=== PATIENT | male | born 1975 | race Caucasian/White ===

== ENCOUNTER 2017-07-22 05:51 | Emergency (ER) | payer OTHER ==
[2017-07-22] MEDS: ACETAMINOPHEN 500 MG TAB PO (08:56)
== END 2017-07-22 09:00 | disposition home or self-care (01) ==
LOC: FTE 05:51
DX: J18.9 Pneumonia, unspecified organism (principal); Z87.891 Personal history of nicotine dependence
CPT/HCPCS: 71010; 71045; 99284-25

== ENCOUNTER 2017-08-26 18:45 | Inpatient (IN) | payer OTHER ==
[2017-08-26 23:38] LABS: ADD MAN DIFF? NO
[2017-08-26 23:45] LABS: BASOPHILS % 0.2 % (0.0-2.0); EOSINOPHILS % 0.3 % (0.0-7.0); HEMATOCRIT 38.9 % (42.0-52.0); HEMOGLOBIN 12.9 g/dl (14.0-18.0); LYMPHOCYTES # 2.2 10^3/ul (0.8-2.9); LYMPHOCYTES % 24.4 % (15.0-51.0); MEAN CORPUSCULAR HEMOGLOBIN 28.8 pg (29.0-33.0); MEAN CORPUSCULAR HGB CONC 33.2 g/dl (32.0-37.0); MEAN CORPUSCULAR VOLUME 86.8 fl (82.0-101.0); MEAN PLATELET VOLUME 8.8 fl (7.4-10.4); MONOCYTE # 0.9 10^3/ul (0.3-0.9); MONOCYTES % 9.4 % (0.0-11.0); NEUTROPHIL # 5.9 10^3/ul (1.6-7.5); NEUTROPHILS % 65.4 % (39.0-77.0); PLATELET COUNT 300 10^3/UL (140-415); RED BLOOD COUNT 4.48 10^6/ul (4.70-6.10); RED CELL DISTRIBUTION WIDTH 11.7 % (11.5-14.5)
[2017-08-27 00:06] LABS: ALANINE AMINOTRANSFERASE 231 IU/L (13-69); ALBUMIN 4.2 g/dl (3.3-4.9); ALKALINE PHOSPHATASE 153 IU/L (42-121); ANION GAP 16 (8-16); ASPARTATE AMINO TRANSFERASE 248 IU/L (15-46); BILIRUBIN,INDIRECT 0.6 mg/dl (0-1.1); BILIRUBIN,TOTAL 0.7 mg/dl (0.2-1.3); BLOOD UREA NITROGEN 15 mg/dl (7-20); CALCIUM 9.4 mg/dl (8.4-10.2); CARBON DIOXIDE 29 mmol/L (21-31); CHLORIDE 105 mmol/L (97-110); CREATININE 0.86 mg/dl (0.61-1.24); GLUCOSE 87 mg/dl (70-220); SODIUM 146 mmol/L (135-144); TOTAL PROTEIN 7.2 g/dl (6.1-8.1)
[2017-08-27] MEDS: morphine 4 MG/ML VIAL IV (00:11)
[2017-08-27] MEDS: ONDANSETRON 4 MG INJ IV (00:11)
[2017-08-27 00:16] LABS: B-TYPE NATRIURETIC PEPTIDE 51 PG/ML (0-125)
[2017-08-27 00:38] LABS: TROPONIN-I < 0.012 ng/ml (0.00-0.12)
[2017-08-27] MEDS ORDERED: NITROGLYCERIN (SL) 0.4 MG TAB SL (02:30)
[2017-08-27] MEDS ORDERED: BISACODYL (EC) 5 MG TAB PO (02:30)
[2017-08-27] MEDS ORDERED: NACL 0.9% 3 ML SYG IV (02:30)
[2017-08-27] MEDS ORDERED: DOCUSATE SODIUM 100 MG CAP PO (02:30)
[2017-08-27] MEDS ORDERED: morphine 2 MG INJ IV (02:30)
[2017-08-27] MEDS ORDERED: ONDANSETRON 4 MG INJ IV (02:30)
[2017-08-27] MEDS: SOD CHLORIDE 0.9% 1,000 ML IV ×2 (04:31→14:58)
[2017-08-27] MEDS: ALBUTEROL HFA 8 GM INHALER INH ×4 (04:34→14:58)
[2017-08-27 07:17] LABS: ADD UMIC NO; UR ASCORBIC ACID 40 mg/dL (NEGATIVE); UR BILIRUBIN (Dip) NEGATIVE (NEGATIVE); UR BLOOD (Dip) NEGATIVE (NEGATIVE); UR CLARITY CLEAR (CLEAR); UR COLOR AMBER (YELLOW); UR GLUCOSE (Dip) NEGATIVE (NEGATIVE); UR KETONES (Dip) TRACE mg/dL (NEGATIVE); UR LEUKOCYTE ESTERASE (Dip) NEGATIVE Leu/ul (NEGATIVE); UR NITRITE (Dip) NEGATIVE (NEGATIVE); UR SPECIFIC GRAVITY (Dip) 1.019 (1.003-1.030); UR TOTAL PROTEIN (Dip) NEGATIVE (NEGATIVE); UR UROBILINOGEN (Dip) 2+ mg/dL (NEGATIVE)
[2017-08-27 08:41] LABS: D-DIMER 551.02 ng/ml (<460)
[2017-08-27] MEDS: RANITIDINE 150 MG TAB PO (09:00)
[2017-08-27 11:45] LABS: CHOL/HDL RATIO 3.8 RATIO; CREATINE KINASE 75 IU/L (23-200); HDL CHOLESTEROL 40 mg/dl (27-67); LDL CHOLESTEROL,CALCULATED 94 mg/dl; TRIGLYCERIDES 101 mg/dl (0-149)
[2017-08-27 11:45] LABS: CHOLESTEROL 154 mg/dl (100-200)
[2017-08-27 11:57] LABS: CK INDEX 0.6
[2017-08-27 12:04] LABS: CK-MB 0.46 ng/ml (0.0-2.4); TROPONIN-I < 0.012 ng/ml (0.00-0.12)
[2017-08-27 12:08] LABS: HEMOGLOBIN A1C 5.2 % (0-5.9)
[2017-08-27] MEDS: IODIXANOL LOCM 100 ML BTL (13:09)
[2017-08-27] MEDS: SOD CHLORIDE 0.9% 100 ML (13:39)
[2017-08-27] MEDS: IOHEXOL 100 ML (13:39)
[2017-08-27 15:17] LABS: ALANINE AMINOTRANSFERASE 403 IU/L (13-69); ALBUMIN 4.2 g/dl (3.3-4.9); ALKALINE PHOSPHATASE 183 IU/L (42-121); ANION GAP 14 (8-16); ASPARTATE AMINO TRANSFERASE 308 IU/L (15-46); BILIRUBIN,INDIRECT 0.7 mg/dl (0-1.1); BILIRUBIN,TOTAL 1.1 mg/dl (0.2-1.3); BLOOD UREA NITROGEN 11 mg/dl (7-20); CALCIUM 9.1 mg/dl (8.4-10.2); CARBON DIOXIDE 28 mmol/L (21-31); CHLORIDE 105 mmol/L (97-110); CREATININE 0.89 mg/dl (0.61-1.24); GLUCOSE 102 mg/dl (70-220); POTASSIUM 4.3 mmol/L (3.5-5.1); SODIUM 143 mmol/L (135-144)
== END 2017-08-27 16:16 | disposition home or self-care (01) | DRG 313 ==
LOC: E/R 18:45 → TEL 08-27 01:08
DX: R07.9 Chest pain, unspecified (principal); R10.13 Epigastric pain
CPT/HCPCS: 36415; 71045; 71275; 76705; 80053; 80061; 81003; 82550; 82553; 83036; 83880; 84443; 84484; 85025; 85378; 93005; 93306; 96374; 96375; 99285-25

== ENCOUNTER 2017-09-09 04:09 | Inpatient (IN) | payer OTHER ==
[2017-09-09 04:48] LABS: ADD MAN DIFF? NO
[2017-09-09 04:50] LABS: WHITE BLOOD COUNT 11.6 10^3/ul (4.8-10.8)
[2017-09-09 04:50] LABS: BASOPHILS % 0.3 % (0.0-2.0); EOSINOPHILS % 0.2 % (0.0-7.0); HEMATOCRIT 39.9 % (42.0-52.0); HEMOGLOBIN 13.7 g/dl (14.0-18.0); LYMPHOCYTES # 1.6 10^3/ul (0.8-2.9); LYMPHOCYTES % 13.6 % (15.0-51.0); MEAN CORPUSCULAR HEMOGLOBIN 28.9 pg (29.0-33.0); MEAN CORPUSCULAR HGB CONC 34.3 g/dl (32.0-37.0); MEAN CORPUSCULAR VOLUME 84.2 fl (82.0-101.0); MEAN PLATELET VOLUME 8.9 fl (7.4-10.4); MONOCYTE # 1.1 10^3/ul (0.3-0.9); MONOCYTES % 9.1 % (0.0-11.0); NEUTROPHIL # 8.9 10^3/ul (1.6-7.5); NEUTROPHILS % 76.5 % (39.0-77.0); PLATELET COUNT 340 10^3/UL (140-415); RED BLOOD COUNT 4.74 10^6/ul (4.70-6.10)
[2017-09-09] MEDS: SOD CHLORIDE 0.9% 1,000 ML IV ×2 (04:54→06:14)
[2017-09-09] MEDS: LIDOCAINE/MYLANTA 40 ML BTL PO (04:55)
[2017-09-09] MEDS: ONDANSETRON 4 MG INJ IV (04:56)
[2017-09-09 05:10] LABS: ALANINE AMINOTRANSFERASE 664 IU/L (13-69); ALBUMIN 4.4 g/dl (3.3-4.9); ALBUMIN/GLOBULIN RATIO 1.33; ALKALINE PHOSPHATASE 332 IU/L (42-121); ANION GAP 18 (8-16); ASPARTATE AMINO TRANSFERASE 382 IU/L (15-46); BILIRUBIN,INDIRECT 1.2 mg/dl (0-1.1); BILIRUBIN,TOTAL 3.2 mg/dl (0.2-1.3); BLOOD UREA NITROGEN 11 mg/dl (7-20); CALCIUM 9.5 mg/dl (8.4-10.2); CARBON DIOXIDE 27 mmol/L (21-31); CHLORIDE 105 mmol/L (97-110); CREATININE 0.86 mg/dl (0.61-1.24); GLUCOSE 91 mg/dl (70-220); POTASSIUM 3.5 mmol/L (3.5-5.1); SODIUM 146 mmol/L (135-144); TOTAL PROTEIN 7.7 g/dl (6.1-8.1)
[2017-09-09 05:27] LABS: TROPONIN-I < 0.012 ng/ml (0.00-0.12)
[2017-09-09 05:50] LABS: LIPASE 39475 U/L (23-300)
[2017-09-09] MEDS: morphine 4 MG/ML VIAL IV (06:13)
[2017-09-09] MEDS: CEFTRIAXONE 1 GM/50 ML (PMX) 50 ML IVPB (06:36)
[2017-09-09] MEDS ORDERED: NACL 0.9% 3 ML SYG IV (07:00)
[2017-09-09] MEDS ORDERED: ALBUTEROL HFA 8 GM INHALER INH (07:00)
[2017-09-09] MEDS ORDERED: morphine 2 MG INJ IV (07:00)
[2017-09-09] MEDS: metroNIDAZOLE 500 MG/NS (PMX) 100 ML IVPB (07:02)
[2017-09-09 07:44] LABS: INR 0.91; PROTIME 12.3 Sec (11.9-14.9)
[2017-09-09 07:45] LABS: PARTIAL THROMBOPLASTIN TIME 28.6 Sec (25.0-35.0)
[2017-09-09] MEDS: DEXTROSE 5%-0.45% NACL 1,000 ML IV ×3 (08:18→20:16)
[2017-09-09] MEDS: FAMOTIDINE 20 MG INJ IV ×2 (09:21→20:16)
[2017-09-09] MEDS: PIPER-TAZO 3.375 GM IV (PMX) 100 ML IVPB ×2 (17:49→22:04)
[2017-09-10] MEDS: DEXTROSE 5%-0.45% NACL 1,000 ML IV ×5 (02:59→22:59)
[2017-09-10] MEDS: PIPER-TAZO 3.375 GM IV (PMX) 100 ML IVPB ×2 (05:42→13:22)
[2017-09-10 06:13] LABS: ADD MAN DIFF? NO
[2017-09-10 06:21] LABS: BASOPHILS % 0.5 % (0.0-2.0); EOSINOPHILS # 0.1 10^3/ul (0.0-0.5); EOSINOPHILS % 1.2 % (0.0-7.0); HEMATOCRIT 37.4 % (42.0-52.0); HEMOGLOBIN 12.6 g/dl (14.0-18.0); LYMPHOCYTES # 1.9 10^3/ul (0.8-2.9); LYMPHOCYTES % 24.6 % (15.0-51.0); MEAN CORPUSCULAR HEMOGLOBIN 29.1 pg (29.0-33.0); MEAN CORPUSCULAR HGB CONC 33.7 g/dl (32.0-37.0); MEAN CORPUSCULAR VOLUME 86.4 fl (82.0-101.0); MEAN PLATELET VOLUME 8.8 fl (7.4-10.4); MONOCYTE # 0.7 10^3/ul (0.3-0.9); MONOCYTES % 9.3 % (0.0-11.0); NEUTROPHILS % 64.1 % (39.0-77.0); PLATELET COUNT 281 10^3/UL (140-415); RED BLOOD COUNT 4.33 10^6/ul (4.70-6.10)
[2017-09-10 06:21] LABS: WHITE BLOOD COUNT 7.7 10^3/ul (4.8-10.8)
[2017-09-10 06:41] LABS: ALANINE AMINOTRANSFERASE 436 IU/L (13-69); ALBUMIN/GLOBULIN RATIO 1.48; ALKALINE PHOSPHATASE 258 IU/L (42-121); ANION GAP 16 (8-16); ASPARTATE AMINO TRANSFERASE 130 IU/L (15-46); BILIRUBIN,INDIRECT 0.5 mg/dl (0-1.1); BILIRUBIN,TOTAL 0.5 mg/dl (0.2-1.3); BLOOD UREA NITROGEN 10 mg/dl (7-20); CALCIUM 9.2 mg/dl (8.4-10.2); CARBON DIOXIDE 28 mmol/L (21-31); CHLORIDE 105 mmol/L (97-110); CREATININE 0.85 mg/dl (0.61-1.24); GLUCOSE 101 mg/dl (70-220); PHOSPHORUS 3.7 mg/dl (2.5-4.9); POTASSIUM 3.6 mmol/L (3.5-5.1); SODIUM 145 mmol/L (135-144); TOTAL PROTEIN 6.7 g/dl (6.1-8.1)
[2017-09-10 06:41] LABS: LACTIC ACID 1.2 mmol/L (0.5-2.0)
[2017-09-10 06:42] LABS: INR 1.04; PROTIME 13.7 Sec (11.9-14.9); PT RATIO 1.1
[2017-09-10 06:43] LABS: PARTIAL THROMBOPLASTIN TIME 31.5 Sec (25.0-35.0)
[2017-09-10 06:56] LABS: LIPASE 2317 U/L (23-300)
[2017-09-10 07:06] LABS: AMYLASE 811 U/L (11-123)
[2017-09-10] MEDS: FAMOTIDINE 20 MG INJ IV ×2 (08:38→21:04)
[2017-09-11] MEDS: DEXTROSE 5%-0.45% NACL 1,000 ML IV ×4 (05:19→18:59)
[2017-09-11 06:02] LABS: HAAIG REFLEX REFLEX FILED
[2017-09-11 06:38] LABS: ALANINE AMINOTRANSFERASE 339 IU/L (13-69); ALBUMIN 3.8 g/dl (3.3-4.9); ALKALINE PHOSPHATASE 235 IU/L (42-121); ASPARTATE AMINO TRANSFERASE 85 IU/L (15-46); BILIRUBIN,INDIRECT 0.4 mg/dl (0-1.1); BILIRUBIN,TOTAL 0.4 mg/dl (0.2-1.3); LIPASE 562 U/L (23-300); TOTAL PROTEIN 6.9 g/dl (6.1-8.1)
[2017-09-11 07:07] LABS: HEPATITIS B SURFACE ANTIGEN NEGATIVE (NEGATIVE)
[2017-09-11 07:25] LABS: HEPATITIS B CORE ANTIBODY REACTIVE (NEGATIVE); HEPATITIS C VIRAL ANTIBODY NEGATIVE (NEGATIVE)
[2017-09-11] MEDS: FAMOTIDINE 20 MG INJ IV ×2 (08:27→21:40)
[2017-09-12] MEDS: DEXTROSE 5%-0.45% NACL 1,000 ML IV ×2 (04:09→04:59)
[2017-09-12 06:23] LABS: ALANINE AMINOTRANSFERASE 313 IU/L (13-69); ALKALINE PHOSPHATASE 206 IU/L (42-121); ASPARTATE AMINO TRANSFERASE 88 IU/L (15-46); BILIRUBIN,INDIRECT 0.2 mg/dl (0-1.1); BILIRUBIN,TOTAL 0.2 mg/dl (0.2-1.3); TOTAL PROTEIN 6.9 g/dl (6.1-8.1)
[2017-09-12] MEDS ORDERED: MIDAZOLAM 1 MG/ML 2 ML INJ IV (06:30)
[2017-09-12] MEDS ORDERED: hydrALAzine 20 MG INJ IV (06:30)
[2017-09-12] MEDS ORDERED: LABETALOL HCL 20MG INJ IV (06:30)
[2017-09-12] MEDS ORDERED: DIPHENHYDRAMINE 50 MG INJ IV (06:30)
[2017-09-12] MEDS ORDERED: ATROPINE 1 MG/10 ML SYRINGE IV (06:30)
[2017-09-12] MEDS ORDERED: EPHEDrine SULFATE 50 MG/5 ML SYG IV (06:30)
[2017-09-12] MEDS ORDERED: morphine (1 MG/ML) 10ML SYRINGE IV ×3 (06:30)
[2017-09-12] MEDS ORDERED: HYDROmorphONE (0.2 MG/ML) 10ML SYG IV (06:30)
[2017-09-12] MEDS ORDERED: FENTAnyl 50 MCG/ML VIAL IV ×2 (06:30)
[2017-09-12] MEDS ORDERED: OXYCODONE/ACETAMINOPHEN (5/325) TAB PO ×2 (06:30)
[2017-09-12 07:32] LABS: LIPASE 360 U/L (23-300)
[2017-09-12] MEDS: FAMOTIDINE 20 MG INJ IV (08:41)
[2017-09-12] MEDS ORDERED: ROCURONIUM 50 MG INJ (09:59)
[2017-09-12] MEDS ORDERED: PROPOFOL 20 ML (09:59)
[2017-09-12] MEDS ORDERED: GLYCOPYRROLATE 0.4 MG INJ (09:59)
[2017-09-12] MEDS ORDERED: NEOSTIGMINE 3 MG/3 ML SYRINGE (09:59)
[2017-09-12] MEDS ORDERED: FENTAnyl 50 MCG/ML VIAL (10:00)
[2017-09-12] MEDS ORDERED: MIDAZOLAM 1 MG/ML 2 ML INJ (10:01)
[2017-09-12] MEDS ORDERED: ONDANSETRON 4 MG INJ (10:01)
[2017-09-12] MEDS ORDERED: DEXAMETHASONE 4 MG/ML 1 ML INJ (10:01)
[2017-09-12] MEDS ORDERED: ALBUTEROL 0.083% (NEB) 2.5 MG/3 ML AMP ×3 (11:29→12:02)
[2017-09-12] MEDS ORDERED: LABETALOL HCL 20MG INJ (11:52)
[2017-09-12] MEDS ORDERED: SUGAMMADEX SODIUM 200 MG/2 ML VIAL IV (12:02)
[2017-09-12] MEDS: BUPIVACAINE 0.25% (MPF) 30 ML INJ (12:54)
[2017-09-12] MEDS: HYDROmorphONE (0.2 MG/ML) 10ML SYG IV ×4 (13:09→14:12)
[2017-09-12] MEDS: MEPERIDINE 25 MG INJ IV (13:22)
[2017-09-12] MEDS ORDERED: HYDROmorphONE 0.5 MG/0.5 ML SYG IV (13:30)
[2017-09-12] MEDS ORDERED: HYDROCODONE/APAP (5/325) TAB PO (13:30)
[2017-09-12] MEDS ORDERED: HYDROmorphONE 1 MG/ML SYG IV (13:30)
[2017-09-12] MEDS ORDERED: NA PHOSPHATE/BIPHOS 133 ML ENEMA PR (13:30)
[2017-09-12] MEDS ORDERED: BISACODYL 10 MG SUPP PR (13:30)
[2017-09-12] MEDS: ONDANSETRON 4 MG INJ IV ×2 (13:37→20:18)
[2017-09-12] MEDS: BISACODYL 10 MG SUPP PR (20:17)
[2017-09-12] MEDS: HYDROCODONE/APAP (5/325) TAB PO (20:19)
[2017-09-12] MEDS: HYDROmorphONE 0.5 MG/0.5 ML SYG IV (20:19)
[2017-09-12] MEDS: FAMOTIDINE 20 MG TAB PO (20:19)
[2017-09-12] MEDS: DOCUSATE SODIUM 100 MG CAP PO (20:20)
[2017-09-13] MEDS: HYDROCODONE/APAP (5/325) TAB PO ×3 (01:08→11:46)
[2017-09-13 06:07] LABS: ADD MAN DIFF? NO
[2017-09-13 06:10] LABS: BASOPHILS % 0.2 % (0.0-2.0); EOSINOPHILS % 0.2 % (0.0-7.0); HEMATOCRIT 40.8 % (42.0-52.0); LYMPHOCYTES % 24.8 % (15.0-51.0); MEAN CORPUSCULAR HEMOGLOBIN 29.1 pg (29.0-33.0); MEAN CORPUSCULAR HGB CONC 34.3 g/dl (32.0-37.0); MEAN CORPUSCULAR VOLUME 84.8 fl (82.0-101.0); MEAN PLATELET VOLUME 8.6 fl (7.4-10.4); MONOCYTES % 8.2 % (0.0-11.0); NEUTROPHILS % 66.2 % (39.0-77.0); PLATELET COUNT 457 10^3/UL (140-415); RED BLOOD COUNT 4.81 10^6/ul (4.70-6.10)
[2017-09-13 06:10] LABS: WHITE BLOOD COUNT 12.1 10^3/ul (4.8-10.8)
[2017-09-13 06:31] LABS: INR 0.96; PROTIME 12.9 Sec (11.9-14.9)
[2017-09-13 06:32] LABS: PARTIAL THROMBOPLASTIN TIME 28.4 Sec (25.0-35.0)
[2017-09-13 07:09] LABS: ALANINE AMINOTRANSFERASE 316 IU/L (13-69); ALBUMIN 4.9 g/dl (3.3-4.9); ALBUMIN/GLOBULIN RATIO 1.48; ALKALINE PHOSPHATASE 235 IU/L (42-121); ANION GAP 21 (8-16); ASPARTATE AMINO TRANSFERASE 98 IU/L (15-46); BILIRUBIN,INDIRECT 0.4 mg/dl (0-1.1); BILIRUBIN,TOTAL 0.4 mg/dl (0.2-1.3); BLOOD UREA NITROGEN 6 mg/dl (7-20); CALCIUM 10.2 mg/dl (8.4-10.2); CARBON DIOXIDE 27 mmol/L (21-31); CHLORIDE 105 mmol/L (97-110); CREATININE 0.94 mg/dl (0.61-1.24); GLUCOSE 102 mg/dl (70-220); LIPASE 233 U/L (23-300); PHOSPHORUS 5.2 mg/dl (2.5-4.9); POTASSIUM 4.5 mmol/L (3.5-5.1); SODIUM 148 mmol/L (135-144); TOTAL PROTEIN 8.2 g/dl (6.1-8.1)
[2017-09-13] MEDS: BISACODYL 10 MG SUPP PR (09:00)
[2017-09-13] MEDS: ENOXAPARIN 40 MG/0.4 ML SYG SC (09:55)
[2017-09-14] MEDS ORDERED: NA PHOSPHATE/BIPHOS 133 ML ENEMA PR (09:00)
[2017-09-14] MEDS ORDERED: DOCUSATE SODIUM 100 MG CAP PO (09:00)
== END 2017-09-13 14:20 | disposition home or self-care (01) | DRG 418 ==
LOC: E/R 04:09 → MS2 06:18
PROC: 0FT44ZZ Resection of Gallbladder, Percutaneous Endoscopic Approach (ICD-10-PCS; principal; 2017-09-12 11:00)
DX: K85.10 Biliary acute pancreatitis without necrosis or infection (principal); K80.12 Calculus of gallbladder with acute and chronic cholecystitis without obstruction; K21.9 Gastro-esophageal reflux disease without esophagitis; K29.70 Gastritis, unspecified, without bleeding; Z87.891 Personal history of nicotine dependence; E04.1 Nontoxic single thyroid nodule
CPT/HCPCS: 36415; 74181; 76536; 76705; 80053; 80076; 82150; 83605; 83690; 83735; 84100; 84484; 85025; 85610; 85730; 86704; 86709; 86803; 87081; 87340; 88304; 93005; 96365; 96368; 96375; 99285-25

== ENCOUNTER 2017-09-25 09:55 | Outpatient (CLI) | payer OTHER | END 2017-09-25 15:30 | disposition home or self-care (01) | LOC: HPC 09:55 | DX: K80.20 Calculus of gallbladder without cholecystitis without obstruction (principal); K85.10 Biliary acute pancreatitis without necrosis or infection; M19.90 Unspecified osteoarthritis, unspecified site; Z87.891 Personal history of nicotine dependence | CPT/HCPCS: Z7500 ==

== ENCOUNTER 2018-07-28 15:18 | Emergency (ER) | payer OTHER ==
[2018-07-28] MEDS: KETOROLAC 30 MG INJ IM (17:06)
[2018-07-28 17:07] LABS: URINE PH (Dip) POC 7.5 (5.0-8.5)
[2018-07-28 17:07] LABS: URINE BLOOD (Dip) POC Negative (NEGATIVE); URINE GLUCOSE (Dip) POC Negative (NEGATIVE); URINE KETONES (Dip) POC Negative (NEGATIVE); URINE LEUKOCYTE EST (Dip) POC Negative (NEGATIVE); URINE NITRITE (Dip) POC Negative (NEGATIVE); URINE TOTAL PROTEIN POC Negative (NEGATIVE)
== END 2018-07-28 17:53 | disposition home or self-care (01) ==
LOC: FTE 17:53
DX: R51 Headache (principal); I10 Essential (primary) hypertension
CPT/HCPCS: 70450; 81003; 96372; 99285-25